=== PATIENT | male | born 1970 | race Caucasian/White ===

== ENCOUNTER 2019-12-25 22:34 | Emergency (ER) | payer OTHER ==
[~2019-12-25] VITALS: Ht 165.1 cm; Wt 95.3 kg
[2019-12-25] MEDS ORDERED: VOLTAREN100 GM (22:45)
[2019-12-25] MEDS ORDERED: NEXIUM40 M1 PO (22:45)
[2019-12-25] MEDS ORDERED: ALTACE5 MG PO (22:45)
[2019-12-25] MEDS ORDERED: NEURONTIN800 MG PO (22:46)
[2019-12-25] MEDS ORDERED: ORPHENADRINE C100 MG PO (22:47)
[2019-12-25] MEDS ORDERED: AMBIEN10 MG PO (22:47)
== END 2019-12-26 01:11 | disposition home or self-care (01) ==
LOC: ER 22:34
DX: S61.522A Laceration with foreign body of left wrist, initial encounter (principal); W45.8XXA Other foreign body or object entering through skin, initial encounter; Y93.89 Activity, other specified; Y92.69 Other specified industrial and construction area as the place of occurrence of the external cause; Y99.8 Other external cause status